=== PATIENT | female | born 1990 | race Caucasian/White ===

== ENCOUNTER 2016-10-09 19:54 | Emergency (ER) | payer OTHER ==
[2016-10-09 20:10] LABS: URINE BILIRUBIN NEGATIVE (NEGATIVE); URINE BLOOD 3+ (NEGATIVE); URINE GLUCOSE (UA) NORMAL (NORMAL); URINE KETONE 2+ (NEGATIVE); URINE LEUKOCYTE ESTERASE TRACE (NEGATIVE); URINE NITRATE NEGATIVE (NEGATIVE); URINE PROTEIN 1+ (NEGATIVE); UROBILINOGEN NORMAL mg/dL (<1.0)
[2016-10-09 20:25] LABS: URINE BACTERIA TRACE (NONE SEEN); URINE RBC >20 /[HPF] (0-2); URINE WBC 0-5 /[HPF] (0-5)
== END 2016-10-09 21:37 | disposition home or self-care (01) ==
LOC: ER 19:54
PROVIDERS: General Practice
DX: R31.9 Hematuria, unspecified (principal); R30.0 Dysuria; R10.32 Left lower quadrant pain; K59.00 Constipation, unspecified; Z88.1 Allergy status to other antibiotic agents; Z79.3 Long term (current) use of hormonal contraceptives
CPT/HCPCS: 81001; 81025; 99070; 99284-25